=== PATIENT | female | born 1975 | race Caucasian/White ===

== ENCOUNTER 2022-05-25 10:25 | Outpatient (CLI) | payer BC, SELFPAY ==
--- OUTSIDE RECORDS SUMMARY | 2022-05-25 10:16 | XMS_ITS | Clinical Summary ---
:1975 Author Organization [facility] [place] [address] Care Team Providers Name Role Phone Shagufta Barr Primary Care Provider Allergies No known active allergies Medications No known medications Active Problems Problem Noted Date Diarrhea 05/15/2013 Overview: Colonoscopy 04/2013 hemorrhoids Social History Tobacco Use Types Packs/Day Years Used Date Never Smoker Smokeless Tobacco: Never Used Tobacco Cessation: Counseling Given: Yes Alcohol Use Standard Drinks/Week Comments Not Asked 0 (1 standard drink = 0.6 oz pure alcoho l) Sex Assigned at Date Recorded Not on file Obstetrics History Last Filed Vital Signs Vital Sign Reading Time Taken Comments Blood Pressure 110/69 05/24/2016 6:53 PM CDT Pulse 61 05/24/2016 6:53 PM CDT Temperature 36.8 ??C (98.2 ??F) 05/24/2016 6:53 PM CDT Respiratory Rate 16 05/24/2016 6:53 PM CDT Oxygen Saturation 97% 05/24/2016 6:53 PM CDT Inhaled Oxygen Concentration - - Weight 57.5 kg (126 lb 12.8 oz) 05/06/2013 2:17 PM CDT Height - - Body Mass Index - - Plan of Treatment Health Maintenance Due Date Last Done Comments COVID-19 vaccine series (#1) 01/30/1977 Tdap 1987 Depression screening for age 12+ 1988 BMI (ht and wt on same day) for 1994 age 18+ Hepatitis C screening for age 1208/01/1994 18-79 Tetanus booster 1996 Lipids for age 45-75 2021 Mammogram for age 45-75 2021 Influenza for age 9-49 04/26/2022 Colonoscopy through age 75 05/12/2023 05/12/2013 Pap test for age 21-65 03/24/2024 03/24/2021, 03/24/2021, 12/24/2018, Additional history exists Results Not on filefrom Last 3 Months Insurance Payer Benefit Plan / Subscriber ID Effective Dates Phone Addre ss Type Group [employer]UE [employer]OSS BL[employer] OF [id number] 2012-Present [address] [place] [address] [employer] OF [id number] 2016-Present [address] [address] [place] [address] 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
[2022-05-25 14:19] LABS: Cholesterol* 184 mg/dL (90-199); Triglycerides* 93 mg/dL (40-149)
[2022-05-25 14:20] LABS: HDL Cholesterol* 60 mg/dL (>=50); LDL Cholesterol Calculated 105 mg/dL (<100)
[2022-05-25 15:16] LABS: TSH With Reflex to FT4* 0.799 uIU/mL (0.270-4.200)
== END 2022-05-25 10:26 | disposition home or self-care (01) ==
PROVIDERS: PCP Physician Assistant Medical; Visit Provider Physician Assistant Medical
DX: Z01.419 Encounter for gynecological examination (general) (routine) without abnormal findings (principal); Z13.29 Encounter for screening for other suspected endocrine disorder; Z13.6 Encounter for screening for cardiovascular disorders
CPT/HCPCS: 80061; 84443

== ENCOUNTER 2022-06-22 11:32 | Outpatient (CLI) | payer BC, SELFPAY ==
--- NOTE | 2022-06-22 11:30 | CRLHL7_ITS ---
For Patients: As a result of the Cures Act, medical imaging exams and procedure reports are released immediately into your electronic medical record. You may view this report before your referring provider. If you have questions, please contact your health care provider. BILATERAL SCREENING MAMMOGRAM WITH COMPUTER-AIDED DETECTION AND TOMOSYNTHESIS TECHNIQUE: CC and MLO views were obtained. These mammographic images have been obtained using full-field digital technique. These mammographic images were interpreted with the benefit of computer-aided detection. Breast Tomosynthesis was used in this interpretation. COMPARISON FILM: 05/22/21, 05/09/20, 02/06/19. FINDINGS: The breasts are extremely dense, which lowers the sensitivity of mammography IMPRESSION: There is no radiographic evidence for malignancy. ASSESSMENT: BI-RADS Category 1: Negative RECOMMENDATION: Routine screening mammogram in 1 year. A lay language report of this examination will be provided to the patient. Douglas Colon M.D. Diagnostic Radiologist [email or web address] MELY/[email or web address] / be/Dictated by: Douglas Colon MD @ 06/25/2022 9:26:00 AM (Electronically Signed)
--- OUTSIDE RECORDS SUMMARY | 2022-06-22 11:53 | XMS_ITS | Clinical Summary ---
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
== END 2022-06-22 11:33 | disposition home or self-care (01) ==
LOC: MAMMO 11:32
PROVIDERS: PCP Physician Assistant Medical; Visit Provider Physician Assistant Medical
DX: Z12.31 Encounter for screening mammogram for malignant neoplasm of breast (principal); R92.2 Inconclusive mammogram
CPT/HCPCS: 77063; 77067

== ENCOUNTER 2022-10-19 06:22 | Outpatient (CLI) | payer BC, SELFPAY | END 2022-10-19 06:23 | disposition home or self-care (01) | PROVIDERS: PCP Physician Assistant Medical; Visit Provider Internal Medicine | DX: Z12.11 Encounter for screening for malignant neoplasm of colon (principal) | CPT/HCPCS: 45378; 99153; J2250; J3010 ==

== ENCOUNTER 2023-05-02 08:54 | Outpatient (CLI) | payer OTHER, SELFPAY ==
[2023-05-02 14:38] LABS: Chlamydia DNA Amplified* NOT DETECTED (No Detected); GC DNA Amplified* NOT DETECTED (No Detected)
== END 2023-05-02 08:55 | disposition home or self-care (01) ==
PROVIDERS: PCP Physician Assistant Medical; Visit Provider Physician Assistant Medical
DX: Z00.00 Encounter for general adult medical examination without abnormal findings (principal); Z11.3 Encounter for screening for infections with a predominantly sexual mode of transmission
CPT/HCPCS: 87491; 87591

== ENCOUNTER 2023-05-07 08:56 | Outpatient (CLI) | payer OTHER, SELFPAY | END 2023-05-07 08:57 | disposition home or self-care (01) | LOC: NFLDREF 05-08 01:14 | PROVIDERS: PCP Physician Assistant Medical; Referring Provider Physician Assistant Medical; Visit Provider Physician Assistant Medical | DX: Z00.00 Encounter for general adult medical examination without abnormal findings (principal); Z13.6 Encounter for screening for cardiovascular disorders; Z13.29 Encounter for screening for other suspected endocrine disorder | CPT/HCPCS: 80053; 80061; 84443 ==

== ENCOUNTER 2023-07-30 09:10 | Outpatient (CLI) | payer OTHER, SELFPAY ==
--- NOTE | 2023-07-30 09:15 | CRLHL7_ITS ---
For Patients: As a result of the Century Cures Act, medical imaging exams and procedure reports are released immediately into your electronic medical record. You may view this report before your referring provider. If you have questions, please contact your health care provider. BILATERAL SCREENING MAMMOGRAM WITH COMPUTER-AIDED DETECTION AND TOMOSYNTHESIS TECHNIQUE: CC and MLO views were obtained. These mammographic images have been obtained using full-field digital technique. These mammographic images were interpreted with the benefit of computer-aided detection. Breast tomosynthesis was used in this interpretation. COMPARISON FILM: 06/22/22, 05/22/21, 05/09/20. FINDINGS: The breasts are extremely dense, which lowers the sensitivity of mammography. IMPRESSION: There is no radiographic evidence for malignancy. ASSESSMENT: BI-RADS Category 1: Negative RECOMMENDATION: Routine screening mammogram in 1 year. A lay language report of this examination will be provided to the patient. DOUGLAS TAO M.D. Diagnostic Radiologist [email or web address] MELY/[email or web address] Transcribed: 07/30/2023, 2:[address]/Dictated by: Douglas Tao MD @ 07/30/2023 10:29:00 AM (Electronically Signed)
== END 2023-07-30 09:11 | disposition home or self-care (01) ==
LOC: MAMMO 09:11
PROVIDERS: PCP Physician Assistant Medical; Visit Provider Physician Assistant Medical
DX: Z12.31 Encounter for screening mammogram for malignant neoplasm of breast (principal); R92.2 Inconclusive mammogram
CPT/HCPCS: 77063; 77067

== ENCOUNTER 2024-09-07 08:32 | Outpatient (CLI) | payer OTHER, SELFPAY | END 2024-09-07 08:33 | disposition home or self-care (01) | LOC: NFLDREF 09-14 04:45 | PROVIDERS: PCP Physician Assistant Medical; Referring Provider Physician Assistant Medical; Visit Provider Physician Assistant Medical | DX: Z13.228 Encounter for screening for other metabolic disorders (principal); Z13.220 Encounter for screening for lipoid disorders; Z13.29 Encounter for screening for other suspected endocrine disorder | CPT/HCPCS: 80053; 80061; 84443 ==

== ENCOUNTER 2024-09-11 08:18 | Outpatient (CLI) | payer OTHER, SELFPAY ==
--- NOTE | 2024-09-11 08:15 | CRLHL7_ITS ---
For Patients: As a result of the Century Cures Act, medical imaging exams and procedure reports are released immediately into your electronic medical record. You may view this report before your referring provider. If you have questions, please contact your health care provider. BILATERAL SCREENING MAMMOGRAM WITH COMPUTER-AIDED DETECTION AND TOMOSYNTHESIS TECHNIQUE: CC and MLO views were obtained. These mammographic images have been obtained using full-field digital technique. These mammographic images were interpreted with the benefit of computer-aided detection. Breast Tomosynthesis was used in this interpretation. COMPARISON FILM: 07/30/23, 06/22/22, 05/02/21. FINDINGS: The breasts are extremely dense, which lowers the sensitivity of mammography IMPRESSION: There is no radiographic evidence for malignancy. ASSESSMENT: BI-RADS Category 1: Negative RECOMMENDATION: Routine screening mammogram in 1 year. A lay language report of this examination will be provided to the patient. Douglas Colon M.D. Diagnostic Radiologist [email or web address] MELY/[email or web address] / bM/Dictated by: Douglas Colon MD @ 09/11/2024 10:12:00 AM (Electronically Signed)
--- NOTE | 2024-09-11 09:15 | CRLHL7_ITS ---
For Patients: As a result of the Century Cures Act, medical imaging exams and procedure reports are released immediately into your electronic medical record. You may view this report before your referring provider. If you have questions, please contact your health care provider. INDICATION: Dysmenorrhea with frequent cycles COMPARISON: 04/19/2021 TECHNIQUE: 2D ruano scale and color Doppler images were acquired of the pelvis using a transabdominal and transvaginal approach. FINDINGS: Sonographic images demonstrate a normal size and smooth outer contour of the uterus. Uterus measures 8.3 cm in length by 5.2 cm in AP diameter by 6.9 cm in transverse dimension. The myometrium has a normal uniform echotexture. The endometrial lining measures 14 mm in composite thickness. The right ovary measures 3.2 x 1.9 x 2.6 cm in size and the left ovary measures 3.8 x 2.5 x 3.2 cm. The ovaries demonstrate normal arterial and venous blood flow on color Doppler analysis. There are no suspicious fluid collections within the cul-de-sac. Simple cyst right ovary measures 1.6 x 1.1 x 1.5 cm. Simple cyst left ovary measures 3.0 x 2.0 x 2.4 cm. Collapsing hemorrhagic left ovarian cyst measures 1.8 x 1.6 x 1.5 cm. IMPRESSION: Endometrial thickness 14 millimeters. Dictated by Douglas Colon MD @ 09/11/2024 11:09:46 AM (Electronically Signed)
== END 2024-09-11 08:19 | disposition home or self-care (01) ==
PROVIDERS: PCP Physician Assistant Medical; Visit Provider Physician Assistant Medical
DX: Z12.31 Encounter for screening mammogram for malignant neoplasm of breast (principal); R92.343 Mammographic extreme density, bilateral breasts; N94.6 Dysmenorrhea, unspecified; R93.89 Abnormal findings on diagnostic imaging of other specified body structures
CPT/HCPCS: 76830; 76856; 77063; 77067; 93976

== ENCOUNTER 2024-11-13 08:45 | Outpatient (RCR) | payer OTHER, SELFPAY | END 2025-03-13 23:59 | disposition home or self-care (01) | PROVIDERS: PCP Physician Assistant Medical; Visit Provider Physician Assistant | DX: N39.46 Mixed incontinence (principal); K59.00 Constipation, unspecified; Z51.89 Encounter for other specified aftercare | CPT/HCPCS: 97110; 97112; 97161; 97535 ==

== ENCOUNTER 2025-06-28 08:31 | Outpatient (CLI) | payer OTHER, SELFPAY | END 2025-06-28 08:32 | disposition home or self-care (01) | LOC: NFLDREF 07-01 11:07 | PROVIDERS: PCP Physician Assistant Medical; Referring Provider Physician Assistant Medical; Visit Provider Physician Assistant Medical | DX: N93.8 Other specified abnormal uterine and vaginal bleeding (principal) | CPT/HCPCS: 80053; 80061; 82306; 84443 ==

== ENCOUNTER 2025-07-21 10:16 | Outpatient (CLI) | payer OTHER, SELFPAY ==
--- NOTE | 2025-07-21 10:15 | CRLHL7_ITS ---
For Patients: As a result of the Century Cures Act, medical imaging exams and procedure reports are released immediately into your electronic medical record. You may view this report before your referring provider. If you have questions, please contact your health care provider. INDICATION: abnormal uterine bleeding COMPARISON: 09/11/2024 TECHNIQUE: 2D ruano-scale and color Doppler images were acquired of the pelvis using a transabdominal and transvaginal approach. Transvaginal imaging performed to better visualize the endometrial stripe and ovaries. FINDINGS: Sonographic images demonstrate a normal size and smooth outer contour of the uterus. Uterus measures 8.8 cm in length by 4.4 cm in AP diameter by 5.4 cm in transverse dimension. The myometrium has a normal uniform echotexture. The endometrial lining measures 11.7 mm in composite thickness. The right ovary measures 3.8 x 2.1 x 2.8 cm in size and the left ovary measures 3.7 x 2.4 x 2.4 cm. The ovaries demonstrate normal arterial and venous blood flow on color Doppler analysis. There are no suspicious fluid collections within the cul-de-sac. Simple right ovarian cyst measures 2.4 x 1.8 x 1.9 cm IMPRESSION: Endometrial thickness 11.7 millimeters. Dictated by Douglas Colon MD @ 07/22/2025 6:03:04 PM (Electronically Signed)
== END 2025-07-21 10:17 | disposition home or self-care (01) ==
LOC: US 10:16
PROVIDERS: PCP Physician Assistant Medical; Visit Provider Obstetrics & Gynecology
DX: N93.8 Other specified abnormal uterine and vaginal bleeding (principal); R93.89 Abnormal findings on diagnostic imaging of other specified body structures; N92.3 Ovulation bleeding
CPT/HCPCS: 76830; 76856